=== PATIENT | female | born 1975 | race Caucasian/White ===

== ENCOUNTER 2018-05-12 17:00 | Inpatient (IN) | payer OTHER ==
[~2018-05-12] VITALS: Ht 165.1 cm; Wt 129.6 kg
[~2018-05-12 17:00] MED LIST: PAXIL40 MG PO; REQUIP0.25 MG PO
[2018-05-12 17:36] VITALS: BP 134/92
[2018-05-12] MEDS ORDERED: AUGMENTIN875 MG PO (17:48)
[2018-05-12 18:06] LABS: BASOPHIL (%) 0.2 % (0-1); EOSINOPHIL (%) 0.5 % (0-5); EOSINOPHIL COUNT 0.1 K/uL (0-0.3); HEMATOCRIT 42.7 % (36.0-46.0); HEMOGLOBIN 14.5 G/DL (11.9-15.5); IMMATURE GRANULOCYTE (%) 0.4 % (0.0-0.7); LYMPHOCYTE (%) 13.3 % (15-42); LYMPHOCYTE COUNT 1.7 K/uL (1.0-2.8); MCH 30.3 PG (29.0-34.0); MCV 89.3 FL (83-99); MONOCYTE (%) 9.4 % (3-12); MONOCYTE COUNT 1.2 K/uL (0-0.8); NEUTROPHIL (%) 76.2 % (45-76); NEUTROPHIL COUNT 9.7 K/uL (1.8-6.4); PLATELET COUNT 301 K/uL (156-360); RBC DIS.WIDTH-CV 13.3 % (11.8-14.6); RBC DIS.WIDTH-SD 43.7 % (39-53); RED BLOOD COUNT 4.78 M/uL (3.80-5.20); WHITE BLOOD COUNT 12.7 K/uL (4.1-10.2)
[2018-05-12 18:29] LABS: ALBUMIN 4.1 G/DL (3.2-4.8); ALKALINE PHOSPHATASE 59 IU/L (3-129); ALT (GPT) 14 IU/L (3-49); AST (GOT) 11 IU/L (2-34); C-REACTIVE PROTEIN 38.1 MG/L (0-10); CHLORIDE 106 MEQ/L (99-109); CREATININE 0.9 MG/DL (0.6-1.3); DIRECT BILIRUBIN 0.1 mg/dL (0.0-0.3); GFR ESTIMATE (CALCULATED) > 59 mL/min/; GLUCOSE 94 mg/dL (70-99); SODIUM 137 MEQ/L (136-147); TOTAL BILIRUBIN 0.4 MG/DL (0.0-1.0); UREA NITROGEN (BUN) 12 mg/dL (9-23)
[2018-05-12 19:38] LABS: ERTH.SED.RATE 23 MM/HR (0-20)
[2018-05-12 23:59] VITALS: BP 136/84
[2018-05-13 04:15] VITALS: BP 154/82
[2018-05-13 07:33] VITALS: BP 156/81
[2018-05-13 11:39] VITALS: BP 152/91
[2018-05-13 16:00] VITALS: BP 165/82
[2018-05-13 19:41] VITALS: BP 170/79
[2018-05-14] VITALS (7 sets, daily range): BP systolic 140–189; BP diastolic 80–100
[2018-05-15 07:48] VITALS: BP 126/77
[2018-05-15] MEDS ORDERED: LOSARTAN POTASS50 MG PO (09:12)
== END 2018-05-15 10:15 | disposition home or self-care (01) | DRG 603 ==
LOC: 2EAST 17:00 → CANRESERV 17:21 → ENRESERV 17:21 → 2EAST 05-15 10:15
PROVIDERS: Internal Medicine
DX: L03.113 Cellulitis of right upper limb (principal); S61.451A Open bite of right hand, initial encounter; W55.01XA Bitten by cat, initial encounter; S61.059A Open bite of unspecified thumb without damage to nail, initial encounter; F41.9 Anxiety disorder, unspecified; E78.5 Hyperlipidemia, unspecified; Z68.42 Body mass index [BMI] 45.0-49.9, adult; G25.81 Restless legs syndrome; I10 Essential (primary) hypertension; J30.9 Allergic rhinitis, unspecified; F17.200 Nicotine dependence, unspecified, uncomplicated; Z83.3 Family history of diabetes mellitus; Z80.0 Family history of malignant neoplasm of digestive organs; Z79.899 Other long term (current) drug therapy; Z82.49 Family history of ischemic heart disease and other diseases of the circulatory system
CPT/HCPCS: 80048; 80076; 85025; 85651; 86140; 87040; J0295; J1650; J7050